=== PATIENT | male | born 1975 | race Caucasian/White ===

== ENCOUNTER 2020-04-09 11:56 | Emergency (ER) | payer MEDICAID ==
[~2020-04-09] VITALS: Ht 180.3 cm; Wt 137.1 kg
[2020-04-09 12:12] VITALS: BP 128/51
--- NOTE | 2020-04-09 12:27 | NUR ---
PT AMBULATORY TO ROOM 14 W/ C/O RASH TO NECK AND LOWER ABDOMEN UNDERNEATH PANNUS. PT STATES HE HAS NOT ATTEMPTED HOME REMEDIES OR CREAMS AT HOME. STATES HE ITCHES CONSTANTLY AND CANNOT SLEEP SECONDARY TO THE ITCHING. PT RESTING ON GURNEY. BERRY.
--- NOTE | 2020-04-09 13:36 | NUR ---
BREAK RN: Patient/Caregiver given discharge instructions and they have confirmed that they understand the instructions. Patient ambulatory with steady gait.
== END 2020-04-09 13:37 | disposition home or self-care (01) ==
LOC: ED 12:41
DX: M19.072 Primary osteoarthritis, left ankle and foot (principal); B35.0 Tinea barbae and tinea capitis; B35.4 Tinea corporis
CPT/HCPCS: 99283

== ENCOUNTER 2020-06-15 07:03 | Emergency (ER) | payer MEDICAID ==
[~2020-06-15] VITALS: Ht 170.2 cm; Wt 134.2 kg
--- NOTE | 2020-06-15 07:54 | NUR ---
XRAY IN ROOM, COVID SWAB WALKED TO LAB
--- NOTE | 2020-06-15 07:56 | NUR ---
COUGH, CAN'T SLEEP X2 DAYS. PT ALSO HAS C/O BRIGHT RED BLOOD IN STOOL LAST NIGHT. REPORT RECTAL PAIN 8/.
[2020-06-15] MEDS ORDERED: HYDROCORTISONE 25 MG SUPP PR STA (08:03)
--- NOTE | 2020-06-15 08:25 | NUR ---
Jessica gann in [facility] - 06/15/20 at 0844 by GLORIA sarah in room
--- NOTE | 2020-06-15 08:44 | NUR ---
PHARMACY REQUEST FORM SENT
[2020-06-15 09:31] VITALS: BP 124/78
== END 2020-06-15 09:33 | disposition home or self-care (01) ==
LOC: ED 09:27
DX: U07.1 COVID-19 (principal); J15.9 Unspecified bacterial pneumonia; K64.4 Residual hemorrhoidal skin tags
CPT/HCPCS: 71045; 87635; 99284